=== PATIENT | female | born 1965 | race African-American/Black ===

== ENCOUNTER 2017-03-20 22:33 | Emergency (ER) | payer OTHER ==
[~2017-03-20] VITALS: Ht 160 cm; Wt 61.2 kg
[2017-03-20 22:42] VITALS: BP 155/91
[2017-03-20] MEDS ORDERED: NAPR500T PO (23:51)
--- NOTE | 2017-03-20 23:52 | PHYS DOC ---
Past Medical History Past Medical History: Hypertension Past Surgical History: No Surgical History Alcohol Use: Occasionally Drug Use: None Adult General Chief Complaint Chief Complaint: INSECT BITE HPI HPI Patient is a 52 year old female who presents with complaint of right elbow pain. Patient states she noticed pain and swelling to the right elbow starting yesterday. Patient states that her symptoms have progressively worsened. The patient thinks that she may have been bitten by some type of insect that she does not remember seeing an insect bite nor does she remember sting. Patient states that most the swelling is along the upper portion of her right forearm overlying her elbow. Patient states that it hurts when she tries to move her fingers or when she extends her right arm. Patient denies any associated fever or any other symptoms. Patient took naproxen at home with minimal relief in symptoms. Patient has not applied any other types of therapy including cryotherapy or Virgilio bandage to the affected area. Patient denies any trauma or injury to the affected elbow. Review of Systems Review of Systems Constitutional: Denies fever or chills [] Eyes: Denies change in visual acuity, redness, or eye pain [] HENT: Denies nasal congestion or sore throat [] Musculoskeletal: Right elbow pain and swelling [] Integument: Denies rash or skin lesions [] Neurologic: Denies headache, focal weakness or sensory changes [] Current Medications Current Medications Current Medications Medications (Trade) Dose Ordered Sig/Donavan Start Time Stop Time Status Last Admin Dose Admin Naproxen (Naprosyn) 500 mg 1X STAT 03/20/17 23:42 03/20/17 23:43 UNV Allergies Allergies Allergies Coded Allergies Type Severity Reaction Last Updated Verified Penicillins Allergy Unknown 12/11/13 Yes Physical Exam Physical Exam Constitutional: Alert, afebrile, appears in mild to moderate discomfort. [] [] Cardiovascular:Heart rate regular rhythm, no murmur [] Lungs & Thorax: Bilateral breath sounds clear to auscultation [] Abdomen: Bowel sounds normal, soft, no tenderness, no masses, no pulsatile masses. [] Skin: Warm, dry, no erythema, no rash. [] Back: No tenderness, no CVA tenderness. [] Extremities: Right elbow with mild to moderate soft tissue swelling overlying lateral aspect extending to proximal forearm, muscle tenderness to palpation, no induration, erythema, or fluctuant lesion noted, pain with supination, flexion, and extension at elbow. [] Neurologic: Alert and oriented X 3, normal motor function, normal sensory function, no focal deficits noted. [] Current Patient Data Vital Signs Vital Signs Date Time Temp Pulse Resp B/P (MAP) Pulse Ox O2 Delivery O2 Flow Rate FiO2 03/20/17 22:42 98.1 83 18 100 Room Air 98.1 EKG EKG Not performed [] Radiology/Procedures Radiology/Procedures Not performed [] Course & Med Decision Making Course & Med Decision Making Pertinent Labs and Imaging studies reviewed. (See chart for details) The patient's symptoms appear consistent with acute muscle strain of the proximal forearm. Patient was given Naprosyn in the emergency department. An Virgilio bandage was applied to the right elbow to provide compression. Advised patient to continue on RICE therapy and patient was given a work note for 2 days off of work to rest the elbow and continued treatment. Advise follow-up in 3-5 days a primary doctor if symptoms are not improving and return to emergency department for any worsening symptoms. Patient voiced understanding and in agreement with treatment plan. Dragon Disclaimer Dragon Disclaimer This electronic medical record was generated, in whole or in part, using a voice recognition dictation system. Departure Departure Impression: Primary Impression: Strain of right elbow and forearm Disposition: 01 HOME, SELF-CARE Condition: IMPROVED Referrals: BEN RAYMOND (PCP) Patient Instructions: Muscle Strain, RICE - Routine Care for Injuries Additional Instructions: Follow-up with your primary doctor in 3-5 days if symptoms are not improving. Return to the emergency department for any worsening symptoms. Scripts Naproxen (NAPROSYN) 500 Mg Tablet 1 TAB PO BID, #20 TAB 1 Refill Prov: YOBANI CASEY MD 03/20/17 Problem Qualifiers Primary Impression: Strain of right elbow and forearm Encounter type: initial encounter Qualified Codes: S56.911A - Strain of unspecified muscles, fascia and tendons at forearm level, right arm, initial encounter YOBANI CASEY MD Mar 20, 2017 23:52
[2017-03-20] MEDS ORDERED: NAPROXEN 500 MG TABLET PO ONE (23:55)
== END 2017-03-21 00:08 | disposition home or self-care (01) ==
LOC: ER 22:33
DX: S46.811A Strain of other muscles, fascia and tendons at shoulder and upper arm level, right arm, initial encounter (principal); I10 Essential (primary) hypertension; Z88.0 Allergy status to penicillin; X58.XXXA Exposure to other specified factors, initial encounter; Y93.89 Activity, other specified; Y92.89 Other specified places as the place of occurrence of the external cause; Y99.8 Other external cause status
CPT/HCPCS: 99282

== ENCOUNTER 2019-10-15 14:43 | Emergency (ER) | payer OTHER ==
[~2019-10-15] VITALS: Ht 160 cm; Wt 63.7 kg
[~2019-10-15 14:43] MED LIST: AMLO10TA8 PO; ATEN100T PO; ATOR40TA59 PO; METF10007 PO; NAPR-683 PO; PYRI200T3 PO
[2019-10-15 15:10] VITALS: BP 141/80
--- NOTE | 2019-10-15 15:34 | PHYS DOC ---
Past Medical History Past Medical History: Diabetes-Type II, High Cholesterol, Hypertension Past Surgical History: No Surgical History Additional Information: 09/23 ppd for 15 years Alcohol Use: Occasionally Drug Use: None Adult General Chief Complaint Chief Complaint: LOWER EXT PAIN HPI HPI Patient is a 54 year old female who presents with 5 days right hip pain. States she had awoken that morning with the discomfort, states no known trauma. States she has been walking on it but has been vomiting quite a bit. States she has increasing discomfort, discomfort which shoots down her hip when she raises her leg. Reports she has tried some Tylenol and ibuprofen, sporadically, reports whatever she can find. States she has history of diabetes, has been taking her diabetic medications as prescribed.[] Review of Systems Review of Systems Constitutional: Denies fever or chills [] Respiratory: Denies cough or shortness of breath [] Cardiovascular: No additional information not addressed in HPI [] GI: Denies abdominal pain, nausea, vomiting, bloody stools or diarrhea [] : Denies dysuria or hematuria [] Musculoskeletal: Denies back pain complains of right hip pain[] Integument: Denies rash or skin lesions [] Neurologic: Denies headache, focal weakness or sensory changes [] Endocrine: Denies polyuria or polydipsia [] All other systems were reviewed and found to be within normal limits, except as documented in this note. Allergies Allergies Allergies Coded Allergies Type Severity Reaction Last Updated Verified Penicillins Allergy Intermediate 01/15/18 Yes Physical Exam Physical Exam Constitutional: Well developed, well nourished, no acute distress, non-toxic appearance. [] HENT: Normocephalic, atraumatic, bilateral external ears normal, oropharynx moist, no oral exudates, nose normal. [] Cardiovascular:Heart rate regular rhythm, no murmur [] L Skin: Warm, dry, no erythema, no rash. [] Back: No tenderness, no CVA tenderness. [] Extremities: No tenderness, no cyanosis, no clubbing, ROM intact, no edema. Reports noted increasing discomfort on passive right leg raise no lesions noted, no crepitus, no deformity noted. Minimal tenderness to palpation[] Neurologic: Alert and oriented X 3, normal motor function, normal sensory function, no focal deficits noted. [] Psychologic: Affect normal, judgement normal, mood normal. [] Current Patient Data Vital Signs Vital Signs Date Time Temp Pulse Resp B/P (MAP) Pulse Ox O2 Delivery O2 Flow Rate FiO2 10/15/19 15:10 98.3 83 18 141/80 (100) 99 Room Air 98.3 EKG EKG [] Radiology/Procedures Radiology/Procedures omparison: None. Findings: AP view of the pelvis and 2 additional views of the right hip are submitted. There are multiple calcifications in the bilateral pelvis more likely phleboliths. There is a focus of somewhat heterogeneous sclerosis and lucency of the superior right acetabulum. This also focus of relative lucency of the right iliac bone although this may be due to bowel gas. Femoral heads articulate normally with acetabula bilaterally. There is mild narrowing of the right hip joint space. Impression: 1. There is a focus of relative lucency and sclerosis of the superior right acetabulum, concerning for underlying marrow replacing lesion better characterized by MRI. Electronically signed by: Alo Landaverde MD (10/15/2019 4:34 PM) [facility] [] Course & Med Decision Making Course & Med Decision Making Pertinent Labs and Imaging studies reviewed. (See chart for details) [Reviewed imaging with patient, with no noted fracture. With discomfort worsening when raising leg and shooting pain in leg, suspicious for sciatic type pain. Will provide short course of steroids and recommend antiinflammatory scheduled. Patient follows up at [facility], recommend follow up in 4-5 days to re- evaluate concerns. Patient to follow up with [facility] for consideration of right hip MRI as recommende d in imaging. ] Dragon Disclaimer Dragon Disclaimer This electronic medical record was generated, in whole or in part, using a voice recognition dictation system. Departure Departure Impression: Primary Impression: Sciatic leg pain Disposition: 01 HOME, SELF-CARE Condition: GOOD Referrals: UNKNOWN PCP NAME (PCP) Patient Instructions: Sciatica Additional Instructions: As we discussed, take the steroids as prescribed. They will work to decrease inflammation along your sciatic nerve, which is likely causing the shooting pain in your leg. take Tylenol 500 mg every 6 hours for the next 5 days, even if you are not having discomfort. Your X ray of your hip did not show any break or dislocation, but they do recommend you follow up with your primary care provider to consider an MRI of your hip due to a possible lesion on your bone. Scripts Prednisone (PREDNISONE) 20 Mg Tablet 1 TAB PO DAILY, #5 TAB Prov: IAM DAY APRN 10/15/19 IAM DAY APRN Oct 15, 2019 15:33
--- NOTE | 2019-10-15 16:37 | RAD ---
HIP RIGHT 2V WITH PELVIS History: Pain, decreased range of motion Comparison: None. Findings: AP view of the pelvis and 2 additional views of the right hip are submitted. There are multiple calcifications in the bilateral pelvis more likely phleboliths. There is a focus of somewhat heterogeneous sclerosis and lucency of the superior right acetabulum. This also focus of relative lucency of the right iliac bone although this may be due to bowel gas. Femoral heads articulate normally with acetabula bilaterally. There is mild narrowing of the right hip joint space. Impression: 1. There is a focus of relative lucency and sclerosis of the superior right acetabulum, concerning for underlying marrow replacing lesion better characterized by MRI. Electronically signed by: Alo Landaverde MD (10/15/2019 4:34 PM) [facility]
[2019-10-15] MEDS ORDERED: PRED20TA PO (16:48)
[2019-10-15] MEDS ORDERED: predniSONE 20 MG TABLET PO ONE (17:00)
[2019-10-15] MEDS ORDERED: HYDROcodone/APAP 5/325MG 1 TAB TABLET PO ONE (17:00)
== END 2019-10-15 17:16 | disposition home or self-care (01) ==
LOC: ER 14:43
DX: M54.31 Sciatica, right side (principal); E78.00 Pure hypercholesterolemia, unspecified; E11.9 Type 2 diabetes mellitus without complications; I10 Essential (primary) hypertension; F17.200 Nicotine dependence, unspecified, uncomplicated; Z88.0 Allergy status to penicillin
CPT/HCPCS: 73502; 99284; J7512

== ENCOUNTER 2020-04-08 15:38 | Emergency (ER) | payer OTHER ==
[~2020-04-08] VITALS: Ht 152.4 cm; Wt 72.7 kg
[~2020-04-08 15:38] MED LIST changes: +PRED20TA PO
[2020-04-08 16:00] VITALS: BP 137/78
[2020-04-08] MEDS ORDERED: HYDROcodone/APAP 5/325MG 1 TAB TABLET PO ONE (16:30)
--- NOTE | 2020-04-08 17:04 | RAD ---
EXAM: 3 views right wrist 3 views right hand DATE: 04/08/2020 4:19 PM INDICATION: Reason: pain and swelling after fall 2 days ago / Spl. Instructions: / History: COMPARISON: No Prior FINDINGS: No evidence of acute fracture or dislocation. Joint spaces are preserved without significant degenerative/proliferative change. Mild dorsal soft tissue swelling. Mild chronic deformity fifth metacarpal neck likely from old injury. Scapholunate interval is upper limits normal measuring 4 mm. IMPRESSION: 1. No evidence of acute fracture or dislocation. Electronically signed by: Mike Calixto MD (04/08/2020 5:00 PM) [facility]
--- NOTE | 2020-04-08 17:05 | RAD ---
EXAM: AP, oblique and radial head views of the right elbow were submitted for evaluation. DATE: 04/08/2020 4:19 PM INDICATION: Reason: pain and swelling after fall 2 days ago / Spl. Instructions: / History: COMPARISON: No Prior FINDINGS/ IMPRESSION: There is a moderate to large right elbow joint effusion. Equivocal cortical offset at the radial head suspicious for nondisplaced radial head fracture. Coronoid process enthesopathy. Lateral epicondylar enthesopathy is also seen. Electronically signed by: Mike Calixto MD (04/08/2020 5:02 PM) [facility]
[2020-04-08] MEDS ORDERED: HYDR-2761 PO (17:19)
--- NOTE | 2020-04-08 17:19 | PHYS DOC ---
Past Medical History Past Medical History: Diabetes-Type II, High Cholesterol, Hypertension Past Surgical History: No Surgical History Smoking Status: Current Every Day Smoker Alcohol Use: Occasionally Drug Use: None General Adult EDM: Chief Complaint: UPPER EXTREMITY INJURY HPI: HPI: Patient is a 55 year old AA female who presents to the emergency department with complaints of right elbow, right wrist, and right hand pain and swelling after tripping and falling up 3-4 steps 2 days ago. She denies any numbness, or tingling of the affected extremities. She states that she is dominantly right- handed. She denies taking anything for relief of pain prior to arrival. She currently rates her pain a 10 out of 10 on the pain scale, she denies any alleviating factors the pain is worse with palpation and movement. Review of Systems: Review of Systems: Constitutional: Denies fever or chills. [] Musculoskeletal: Denies back pain; see HPI Integument: Denies rash. [] Neurologic: Denies focal weakness or sensory changes. [] Psychiatric: Denies depression or anxiety. [] Heart Score: Risk Factors: Risk Factors: DM, Current or recent (<one month) smoker, HTN, HLP, family history of CAD, obesity. Risk Scores: Score 0 - 3: 2.5% MACE over next 6 weeks - Discharge Home Score 4 - 6: 20.3% MACE over next 6 weeks - Admit for Clinical Observation Score 7 - 10: 72.7% MACE over next 6 weeks - Early Invasive Strategies Current Medications: Current Medications Medications (Trade) Dose Ordered Sig/Donavan Start Time Stop Time Status Last Admin Dose Admin Acetaminophen/ Hydrocodone Bitart (Lortab 5/325) 1 tab 1X ONCE 04/08/20 16:30 04/08/20 16:31 DC 04/08/20 16:35 1 TAB Allergies: Allergies: Allergies Coded Allergies Type Severity Reaction Last Updated Verified Penicillins Allergy Intermediate 01/15/18 Yes Physical Exam: PE: Constitutional: Well developed, well nourished, no acute distress, non-toxic appearance. [] HENT: Normocephalic, atraumatic, bilateral external ears normal, nose normal. [] Eyes: PERRLA, EOMI, conjunctiva normal, no discharge. [] Neck: Normal range of motion, no stridor. [] Cardiovascular:Heart rate regular rhythm Lungs & Thorax: Respirations even and unlabored, no retractions, no respiratory distress Skin: Warm, dry, no erythema, no rash. [] Extremities: Right elbow/right hand/right wrist: 2+ edema to lateral right hand, and right elbow, tenderness to palpation of the lateral right hand, lateral right elbow, and proximal right wrist, no crepitus, no obvious deformity, no cyanosis, ROM limited due to pain Neurologic: Alert and oriented X 3, no focal deficits noted. [] Psychologic: Affect normal, judgement normal, mood normal. [] Current Patient Data: Vital Signs: Vital Signs Date Time Temp Pulse Resp B/P (MAP) Pulse Ox O2 Delivery O2 Flow Rate FiO2 04/08/20 16:35 98 Room Air 04/08/20 16:00 98.5 84 18 137/78 (97) 98.5 EKG: EKG: [] Radiology/Procedures: Radiology/Procedures: PROCEDURE: WRIST 3V RIGHT EXAM: 3 views right wrist 3 views right hand DATE: 04/08/2020 4:19 PM INDICATION: Reason: pain and swelling after fall 2 days ago / Spl. Instructions: / History: COMPARISON: No Prior FINDINGS: No evidence of acute fracture or dislocation. Joint spaces are preserved without significant degenerative/proliferative change. Mild dorsal soft tissue swelling. Mild chronic deformity fifth metacarpal neck likely from old injury. Scapholunate interval is upper limits normal measuring 4 mm. IMPRESSION: 1. No evidence of acute fracture or dislocation. PROCEDURE: ELBOW RIGHT 3V EXAM: AP, oblique and radial head views of the right elbow were submitted for evaluation. DATE: 04/08/2020 4:19 PM INDICATION: Reason: pain and swelling after fall 2 days ago / Spl. Instructions: / History: COMPARISON: No Prior FINDINGS/ IMPRESSION: There is a moderate to large right elbow joint effusion. Equivocal cortical offset at the radial head suspicious for nondisplaced radial head fracture. Coronoid process enthesopathy. Lateral epicondylar enthesopathy is also seen. [] Course & Med Decision Making: Course & Med Decision Making Pertinent Labs and Imaging studies reviewed. (See chart for details) [] Dragon Disclaimer: Dragon Disclaimer: This electronic medical record was generated, in whole or in part, using a voice recognition dictation system. Departure Departure Impression: Primary Impression: Right radial head fracture Qualified Codes: S52.124A - Nondisplaced fracture of head of right radius, initial encounter for closed fracture Additional Impressions: Acute pain of right wrist Right hand pain Disposition: 01 HOME, SELF-CARE Condition: STABLE Referrals: NO PCP (PCP) CARLY FARFAN MD Patient Instructions: Hand Injuries, Llwn-bo-Pmol, Radial Head Fracture, [id number] Additional Instructions: Fill prescription(s) and use as directed. Recommend application of ice, fernando vation, and rest of affected extremity. Wear the splint and sling that were placed until follow up appointment with Dr. Farfan's office, call tomorrow to schedule an appointment. Return to the ER if your symptoms worsen. Scripts Hydrocodone Bit/Acetaminophen (HYDROCODONE-APAP 5-325 ) 1 Tab Tablet 1 TAB PO PRN Q6HRS PRN for PAIN for 5 Days, #20 TAB 0 Refills Prov: RAYMOND [place] APRN 04/08/20 Justicifation of Admission Dx: Justifications for Admission: Justification of Admission Dx: N/A Splinting Splinting : Location: Right arm Hand-Made Type: orthoglass Splint: Posterior long-arm Pre-Proc Neuro Vasc Exam: normal Post-Proc Neuro Vasc Exam: unchanged from pre-exam RAYMOND [place]NA ELEMENTARY SUPERVISOR Apr 08, 2020 17:19
== END 2020-04-08 17:40 | disposition home or self-care (01) ==
LOC: ER 15:38
DX: S52.124A Nondisplaced fracture of head of right radius, initial encounter for closed fracture (principal); M25.531 Pain in right wrist; M79.641 Pain in right hand; E11.9 Type 2 diabetes mellitus without complications; E78.00 Pure hypercholesterolemia, unspecified; I10 Essential (primary) hypertension; F17.200 Nicotine dependence, unspecified, uncomplicated; Z88.0 Allergy status to penicillin; W10.8XXA Fall (on) (from) other stairs and steps, initial encounter; Y93.89 Activity, other specified; Y92.89 Other specified places as the place of occurrence of the external cause; Y99.8 Other external cause status
CPT/HCPCS: 29105; 73080; 73110; 73130; 99284; A4565

== ENCOUNTER 2020-09-14 21:05 | Emergency (ER) | payer OTHER ==
[~2020-09-14] VITALS: Ht 157.5 cm; Wt 66.3 kg
[~2020-09-14 21:05] MED LIST changes: +AMLO-187 PO; -AMLO10TA8 PO; +HYDR-2761 PO
[2020-09-14 21:45] VITALS: BP 152/88
--- NOTE | 2020-09-14 21:59 | PHYS DOC ---
Past Medical History Past Medical History: Diabetes-Type II, High Cholesterol, Hypertension Past Surgical History: No Surgical History Smoking Status: Current Every Day Smoker Alcohol Use: Occasionally Drug Use: None General Adult EDM: Chief Complaint: HAND PROBLEM HPI: HPI: Patient is a 55 year old female who arrives with a 1 day history of left wrist pain. Patient describes 10 out of 10 pain in the left wrist. Patient denies any history of trauma or repetitive movement of the left wrist. Patient is right-handed. Patient describes warmth of left wrist. Patient denies any other arthralgias. Patient denies any history of this. Pain is worse with range of motion and better with rest. Pain is described as a throbbing discomfort. Review of Systems: Review of Systems: Constitutional: Denies fever or chills. [] Eyes: Denies change in visual acuity. [] HENT: Denies nasal congestion or sore throat. [] Respiratory: Denies cough or shortness of breath. [] Cardiovascular: Denies chest pain or edema. [] GI: Denies abdominal pain, nausea, vomiting, bloody stools or diarrhea. [] : Denies dysuria. [] Musculoskeletal: Denies back pain but has left wrist pain Integument: Denies rash. [] Neurologic: Denies headache, focal weakness or sensory changes. [] Endocrine: Denies polyuria or polydipsia. [] Lymphatic: Denies swollen glands. [] Psychiatric: Denies depression or anxiety. [] Heart Score: Risk Factors: Risk Factors: DM, Current or recent (<one month) smoker, HTN, HLP, family history of CAD, obesity. Risk Scores: Score 0 - 3: 2.5% MACE over next 6 weeks - Discharge Home Score 4 - 6: 20.3% MACE over next 6 weeks - Admit for Clinical Observation Score 7 - 10: 72.7% MACE over next 6 weeks - Early Invasive Strategies Allergies: Allergies: Allergies Coded Allergies Type Severity Reaction Last Updated Verified Penicillins Allergy Intermediate 01/15/18 Yes Physical Exam: PE: Constitutional: Well developed, well nourished, no acute distress, non-toxic genaro earance. [] HENT: Normocephalic, atraumatic, bilateral external ears normal, no trismus, nose normal. [] Eyes: PERRLA, EOMI, conjunctiva normal, no discharge. [] Neck: Normal range of motion, no tenderness, supple, no stridor. [] Cardiovascular:Heart rate regular rhythm, peripheral pulse intact cap refill is brisk Lungs & Thorax: Bilateral breath sounds clear, no respiratory distress Abdomen: soft, no tenderness, no masses, no pulsatile masses. [] Skin: Warm, dry, no erythema, no rash. [] Back: No tenderness, no CVA tenderness. [] Extremities: Tenderness to the left wrist with mild swelling and mild warmth, no erythema, neurovascular intact distally., no cyanosis, no clubbing, , no edema. [] Neurologic: Alert and oriented X 3, normal motor function, normal sensory function, no focal deficits noted. [] Psychologic: Affect normal, judgement normal, mood normal. [] EKG: EKG: [] Radiology/Procedures: Radiology/Procedures: [][facility] [address] [place] [address] IMAGING REPORT Signed PATIENT: COCO BUSTOS ACCOUNT: [id number] : 1965 LOCATION: ER AGE: 55 SEX: F EXAM STATUS: REG ER ORD. PHYSICIAN: LEONA DAHL MD REASON: PAIN PROCEDURE: WRIST 3V LEFT Exam: Left wrist 3 views. Left hand 3 views INDICATION: Pain TECHNIQUE: Frontal, lateral and oblique views of the left hand and left wrist Comparisons: None FINDINGS: Hand: Bone mineralization is normal. No acute or healed fractures. Soft tissues are unremarkable. Joint spaces are well-maintained. Wrist: Bone mineralization is normal. No acute or healed fractures. Mild surrounding soft tissue swelling at the wrist. Joint spaces are well-maintained. IMPRESSION: 1. Mild soft tissue swelling at the wrist without underlying fracture ident ified. The patient is demonstrating snuffbox tenderness recommend splinting with repeat imaging in 5-7 days to rule out an occult scaphoid injury. 2. No acute osseous abnormality of the hand Electronically signed by: Jeremy Cortés MD (09/14/2020 10:23 PM) [facility] DICTATED and SIGNED BY: JEREMY CORTÉS MD DATE: 09/14/20 [id number] 0 Course & Med Decision Making: Course & Med Decision Making Pertinent Labs and Imaging studies reviewed. (See chart for details) [] 55-year-old female presents with atraumatic left wrist pain. Patient has some warmth to the joint but no erythema. No fever. Doubt septic arthritis. Most likely patient has inflammatory arthritis. Patient will be placed in a Velcro wrist splint and given anti-inflammatories and pain medicines and follow- up with orthopedist. Christie Disclaimer: Christie Disclaimer: This electronic medical record was generated, in whole or in part, using a voice recognition dictation system. Departure Departure Impression: Primary Impression: Arthritis of left wrist Additional Impression: Left hand pain Disposition: 01 DC HOME SELF CARE/HOMELESS Condition: STABLE Referrals: NO PCP (PCP) FIOR FORBES MD 2-3 DAYS Patient Instructions: Arthritis, Nonspecific Additional Instructions: EMERGENCY DEPARTMENT GENERAL DISCHARGE INSTRUCTIONS THANK YOU for coming to [facility] Emergency Department (ED) today and trusting us with your care. We trust that you had a positive experience in our Emergency Department. If you wish to speak to the department Management you can contact the gaming department head at . YOUR FOLLOW UP INSTRUCTIONS ARE FOLLOWS: Do you have a private doctor? If you do not have a private doctor, please ask for a resource list of physicians or clinics that may be able to assist you with follow up care. The Emergency Physician has interpreted your x-rays. The X-ray specialist will also review them. If there is a change in the findings you will be notified in 48 hours when at all possible. A lab test or lab culture may have been done, your results will be reviewed and you will be notified if you need a change in treatment. ADDITIONAL INSTRUCTIONS AND INFORMATION Your care today has been supervised by a physician who is specially trained in emergency care. Many problems require more than one evaluation for a complete diagnosis and treatment. We recommend that you schedule your follow up appointment as recommended to ensure complete treatment of your illness or injury. If you are unable to obtain follow up care and continue to have a problem, or if your condition worsens we recommend that you return to the ED. We are not able to safely determine your condition over the phone nor are we able to give sound medical advice over the phone. For these safety reasons, if you call for medical advice we will ask you to come to the ED for further evaluation If you have any questions regarding these discharge instructions please call the ED at . SAFETY INFORMATION In the interest of safety, wellness, and injury prevention; we encourage you to wear your seatbelt, if you smoke; quit smoking, and we encourage your family to use protective helmet for bicycling and other sporting events that present an increased risk for head injury. IF YOUR SYMPTOMS WORSEN OR NEW SYMPTOMS DEVELOP, OR YOU HAVE CONCERNS ABOUT YOUR CONDITION; OR IF YOUR CONDITION WORSENS WHILE YOU ARE WAITING FOR YOUR FOLLOW UP APPOINTMENT; EITHER CONTACT YOUR PRIMARY CARE DOCTOR, THE PHYSICIAN WHOSE NAME AND NUMBER YOU WERE GIVEN, OR RETURN TO THE ED IMMEDIATELY. Scripts Hydrocodone/Apap 5-325 (NORCO 5-325 TABLET) 1 Each Tablet 1-2 EACH PO PRN Q6HRS PRN for PAIN, #15 as needed for pain Prov: LEONA DAHL MD 09/14/20 Ibuprofen (IBUPROFEN) 600 Mg Tablet 600 MG PO PRN Q6HRS PRN for PAIN, #20 TAB take with food or milk Prov: LEONA DAHL MD 09/14/20 LEONA DAHL MD Sep 14, 2020 21:59
[2020-09-14] MEDS ORDERED: HYDROcodone/APAP 7.5/325MG 1 TAB TABLET PO ONE (22:00)
[2020-09-14] MEDS ORDERED: IBUPROFEN 200 MG TABLET. PO ONE (22:00)
--- NOTE | 2020-09-14 22:25 | RAD ---
Exam: Left wrist 3 views. Left hand 3 views INDICATION: Pain TECHNIQUE: Frontal, lateral and oblique views of the left hand and left wrist Comparisons: None FINDINGS: Hand: Bone mineralization is normal. No acute or healed fractures. Soft tissues are unremarkable. Joint spa raymon are well-maintained. Wrist: Bone mineralization is normal. No acute or healed fractures. Mild surrounding soft tissue swelling at the wrist. Joint spaces are well-maintained. IMPRESSION: 1. Mild soft tissue swelling at the wrist without underlying fracture identified. The patient is dem onstrating snuffbox tenderness recommend splinting with repeat imaging in 5-7 days to rule out an occ ult scaphoid injury. 2. No acute osseous abnormality of the hand Electronically signed by: Jeremy Almazan MD (09/14/2020 10:23 PM) [facility]
[2020-09-14] MEDS ORDERED: HYDR-3164 PO (22:32)
[2020-09-14] MEDS ORDERED: IBUP-1007 PO (22:32)
== END 2020-09-14 23:05 | disposition home or self-care (01) ==
LOC: ER 21:05
DX: M19.032 Primary osteoarthritis, left wrist (principal); M79.642 Pain in left hand; E11.9 Type 2 diabetes mellitus without complications; E78.00 Pure hypercholesterolemia, unspecified; I10 Essential (primary) hypertension; F17.200 Nicotine dependence, unspecified, uncomplicated; Z88.0 Allergy status to penicillin
CPT/HCPCS: 29125; 73110; 73130; 99283; 99284